=== PATIENT | male | born 1945 | race Caucasian/White ===

== ENCOUNTER 2022-03-29 15:38 | Emergency (ER) | payer SELFPAY ==
[~2022-03-29] VITALS: Ht 167.6 cm; Wt 77.1 kg
--- NOTE | 2022-03-29 15:51 | NUR ---
PATIENT TAKEN TO CT VIA [facility]
[2022-03-29] MEDS ORDERED: IBUPROFEN 600 MG TABLET ONE (15:52)
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
--- NOTE | 2022-03-29 16:01 | NUR ---
PATIENT RETURNED FROM CT
[2022-03-29] MEDS: IBUPROFEN 600 MG TABLET PO ONE (16:03)
[2022-03-29] MEDS ORDERED: IBUP-1957 PO (17:21)
[2022-03-29 17:35] VITALS: BP 136/72
--- NOTE | 2022-03-29 17:35 | NUR ---
Patient discharged to home in stable condition. Written and verbal after care instructions given. Patient verbalizes understanding of instruction.
== END 2022-03-29 17:35 | disposition home or self-care (01) ==
LOC: ER 15:42
DX: S16.1XXA Strain of muscle, fascia and tendon at neck level, initial encounter (principal); E11.9 Type 2 diabetes mellitus without complications; V49.49XA Driver injured in collision with other motor vehicles in traffic accident, initial encounter; Y93.89 Activity, other specified; Y92.413 State road as the place of occurrence of the external cause; Y99.8 Other external cause status
CPT/HCPCS: 72125-TC